=== PATIENT | male | born 1990 | race African-American/Black ===

== ENCOUNTER 2016-12-16 20:23 | Emergency (ER) | payer MEDICAID ==
[~2016-12-16] VITALS: Ht 182.9 cm; Wt 104.3 kg
[2016-12-16 20:30] VITALS: BP 122/70
== END 2016-12-17 03:17 | disposition left against medical advice (07) ==
LOC: ER 20:36
DX: M79.641 Pain in right hand (principal); M79.644 Pain in right finger(s); Z53.21 Procedure and treatment not carried out due to patient leaving prior to being seen by health care provider; Y08.89XA Assault by other specified means, initial encounter; Y93.89 Activity, other specified; Y99.8 Other external cause status; Y92.89 Other specified places as the place of occurrence of the external cause
CPT/HCPCS: 73130

== ENCOUNTER 2016-12-18 03:54 | Emergency (ER) | payer MEDICAID ==
[~2016-12-18] VITALS: Ht 182.9 cm; Wt 96.2 kg
[2016-12-18] MEDS ORDERED: HYDROcodone-ACET 10/325MG TAB PO ONE (04:15)
[2016-12-18 04:18] VITALS: BP 133/78
== END 2016-12-18 04:58 | disposition left against medical advice (07) ==
LOC: ER 03:54
DX: M79.642 Pain in left hand (principal); Z53.21 Procedure and treatment not carried out due to patient leaving prior to being seen by health care provider; Y08.89XA Assault by other specified means, initial encounter; Y93.89 Activity, other specified; Y99.8 Other external cause status; Y92.89 Other specified places as the place of occurrence of the external cause

== ENCOUNTER 2016-12-26 04:10 | Emergency (ER) | payer MEDICAID ==
[~2016-12-26] VITALS: Ht 182.9 cm; Wt 96.6 kg
[2016-12-26 08:30] VITALS: BP 142/70
== END 2016-12-26 10:31 | disposition home or self-care (01) ==
LOC: ER 04:10
DX: S62.92XD Unspecified fracture of left hand, subsequent encounter for fracture with routine healing (principal); X58.XXXD Exposure to other specified factors, subsequent encounter
CPT/HCPCS: 73130

== ENCOUNTER → 2016-12-26 | Emergency (ER) | payer MEDICAID | END | disposition left against medical advice (07) | LOC: ER 00:56 | DX: M79.641 Pain in right hand (principal); Z53.21 Procedure and treatment not carried out due to patient leaving prior to being seen by health care provider ==

== ENCOUNTER 2016-12-31 16:55 | Emergency (ER) | payer MEDICAID ==
[~2016-12-31] VITALS: Ht 182.9 cm; Wt 96.2 kg
[2016-12-31 17:18] VITALS: BP 123/77
== END 2016-12-31 17:44 | disposition home or self-care (01) ==
LOC: ER 16:58
DX: S62.92XD Unspecified fracture of left hand, subsequent encounter for fracture with routine healing (principal); S62.91XD Unspecified fracture of right hand, subsequent encounter for fracture with routine healing; Z76.0 Encounter for issue of repeat prescription; X58.XXXD Exposure to other specified factors, subsequent encounter

== ENCOUNTER 2017-01-18 09:42 | Emergency (ER) | payer MEDICAID ==
[~2017-01-18] VITALS: Ht 185.4 cm; Wt 97.5 kg
[2017-01-18 09:57] VITALS: BP 120/70
== END 2017-01-18 10:58 | disposition home or self-care (01) ==
LOC: ER 09:42
DX: S62.314D Displaced fracture of base of fourth metacarpal bone, right hand, subsequent encounter for fracture with routine healing (principal); X58.XXXD Exposure to other specified factors, subsequent encounter

== ENCOUNTER 2017-02-15 09:05 | Emergency (ER) | payer MEDICAID ==
[~2017-02-15] VITALS: Ht 182.9 cm; Wt 97.5 kg
[2017-02-15 09:31] LABS: Basophils # (auto) 0 uL; CONDITION Y; Eosinophils # (auto) 0.1 uL; Eosinophils % (auto) 2.2 % (0.0-7.0); Hematocrit 44.7 % (41.0-53.0); Hemoglobin 15.3 g/dL (13.5-17.5); Lymphocytes % (auto) 23.8 % (10.0-50.0); Mean Corpuscular Hemoglobin 30.4 pg (28.0-32.0); Mean Corpuscular Hgb Conc. 34.2 g/dL (32.0-36.0); Mean Corpuscular Volume 88.7 fL (80.0-100.0); Mean Platelet Volume 8.1 fL (6.9-10.8); Monocytes # (auto) 0.3 uL; Monocytes % (auto) 6.5 % (0.0-12.0); Neutrophils # (auto) 2.7 uL; Neutrophils % (auto) 66.5 % (37.0-80.0); Platelet Count (auto) 233 10^3/uL (140-450); Red Cell Distribution Width 13.5 % (11.8-14.3)
[2017-02-15 09:45] VITALS: BP 141/75
[2017-02-15 09:52] LABS: Albumin 4.3 g/dL (3.4-5.0); Alkaline Phosphatase 63 U/L (45-117); Anion Gap 8 (5-15); Aspartate Aminotransferase 13 U/L (15-37); BUN/Creatinine Ratio 11.9; Bilirubin, Total 0.9 mg/dL (0.2-1.0); Blood Urea Nitrogen 16 mg/dL (7-18); Calcium 8.9 mg/dL (8.5-10.1); Carbon Dioxide 26 mmol/L (21-32); Chloride 105 mmol/L (98-107); GFR African American 82 mL/min; GFR Non-African American 67 mL/min; Glucose 98 mg/dL (74-106); Potassium 3.7 mmol/L (3.5-5.1); Sodium 139 mmol/L (136-145)
== END 2017-02-15 10:09 | disposition home or self-care (01) ==
LOC: ER 09:05
DX: R07.89 Other chest pain (principal); J45.909 Unspecified asthma, uncomplicated; F17.210 Nicotine dependence, cigarettes, uncomplicated; R42 Dizziness and giddiness; R11.2 Nausea with vomiting, unspecified
CPT/HCPCS: 36415; 71020; 80053; 84484; 85025; 93005

== ENCOUNTER 2022-06-28 13:43 | Emergency (ER) | payer MEDICAID ==
[~2022-06-28] VITALS: Ht 182.9 cm; Wt 100.0 kg
[2022-06-28 14:22] LABS: Basophils # (auto) 0.1 10 ^3/uL (0-0.2); Basophils % (auto) 1.1 % (0.0-2.0); Eosinophils # (auto) 0.2 10 ^3/uL (0-0.8); Eosinophils % (auto) 4.2 % (0.0-7.0); Hematocrit 44.1 % (41.0-53.0); Hemoglobin 14.7 g/dL (13.5-17.5); Lymphocytes # (auto) 1.3 10 ^3/uL (0.4-5.4); Lymphocytes % (auto) 28.5 % (10.0-50.0); Mean Corpuscular Hemoglobin 31.3 pg (28.0-32.0); Mean Corpuscular Hgb Conc. 33.3 g/dL (32.0-36.0); Mean Corpuscular Volume 94.2 fL (80.0-100.0); Monocytes # (auto) 0.4 10 ^3/uL (0-1.3); Monocytes % (auto) 8.4 % (0.0-12.0); Neutrophils # (auto) 2.6 10 ^3/uL (1.6-8.6); Neutrophils % (auto) 57.8 % (37.0-80.0); Nucleated Red Blood Cells % 0.6 %; Red Blood Cells 4.68 10^6/uL (4.5-5.90); Red Cell Distribution Width 13.9 % (11.8-14.3); White Blood Cell 4.5 10^3/uL (4.4-10.8)
[2022-06-28 14:34] LABS: Albumin 4.1 g/dL (3.4-5.0); Calcium 8.5 mg/dL (8.5-10.1); Potassium 4.6 mmol/L (3.5-5.1)
[2022-06-28 14:38] LABS: BUN/Creatinine Ratio 11.7; Bilirubin, Total 0.3 mg/dL (0.2-1.0); Total Protein 7.6 g/dL (6.4-8.2)
[2022-06-28 14:42] LABS: INR 0.99 (0.9-1.15); Partial Thromboplastin Time 28.9 sec (24.6-33.4)
[2022-06-28 16:35] VITALS: BP 132/74
== END 2022-06-28 16:36 | disposition home or self-care (01) ==
LOC: ER 13:43
DX: R07.89 Other chest pain (principal); J45.909 Unspecified asthma, uncomplicated; F17.210 Nicotine dependence, cigarettes, uncomplicated
CPT/HCPCS: 36415; 71045; 80053; 84484; 85025; 85610; 85730; 93005

== ENCOUNTER 2023-04-09 07:32 | Emergency (ER) | payer MEDICAID ==
[~2023-04-09] VITALS: Ht 182.9 cm; Wt 101.5 kg
[2023-04-09 08:27] VITALS: BP 124/80; PULSE 88; RESP 18; TEMP 98.7; O2SAT 100
[2023-04-09] MEDS ORDERED: IBUP1TAB5 PO ×4 (09:30→11:19)
[2023-04-09] MEDS ORDERED: CEPH500C PO ×3 (09:30→09:47)
== END 2023-04-09 09:39 | disposition home or self-care (01) ==
LOC: ER 07:32
DX: H00.11 Chalazion right upper eyelid (principal); F17.210 Nicotine dependence, cigarettes, uncomplicated; F12.10 Cannabis abuse, uncomplicated; Z88.1 Allergy status to other antibiotic agents

== ENCOUNTER 2023-06-05 14:00 | Emergency (ER) | payer MEDICAID ==
[~2023-06-05] VITALS: Ht 182.9 cm; Wt 106.9 kg
[~2023-06-05 14:00] MED LIST: CEPH500C PO; IBUP1TAB5 PO
[2023-06-05 18:42] VITALS: BP 118/74; PULSE 90; RESP 18; TEMP 98.3; O2SAT 98
[2023-06-05] MEDS ORDERED: KETOROLAC TROMETH 30 MG/ML 1ML VIAL IM ONE (19:30)
[2023-06-05] MEDS ORDERED: IBUPROFEN 400 MG TAB PO ONE (19:45)
[2023-06-05] MEDS ORDERED: CLIN300C70 PO (20:04)
== END 2023-06-05 20:11 | disposition home or self-care (01) ==
LOC: ER 14:00
DX: H00.021 Hordeolum internum right upper eyelid (principal); J45.909 Unspecified asthma, uncomplicated; F17.210 Nicotine dependence, cigarettes, uncomplicated; Z79.1 Long term (current) use of non-steroidal anti-inflammatories (NSAID); Z79.899 Other long term (current) drug therapy; Z88.1 Allergy status to other antibiotic agents
CPT/HCPCS: J1885

== ENCOUNTER 2024-05-16 11:33 | Inpatient (IN) | payer MEDICAID ==
[~2024-05-16] VITALS: Ht 182.9 cm; Wt 109.0 kg
[~2024-05-16 11:33] MED LIST changes: +CLIN1CAP70 PO
[2024-05-16] MEDS: SODIUM CHLORIDE 0.9% 1,000 ML IV ONE ×3 (11:45→20:23)
--- NOTE | 2024-05-16 11:50 | ED.PDOC ---
Psychiatric HPI Comments HPI: Poor Historian. History obtained from the [facility] RSO and paramedics. 33-year-old male brought in by [facility] and the paramedics for altered level of consciousness/altered mental status. Patient was acting bizarrely in the street and was not cooperative. He admitted to use of methamphetamine. Per [facility] they are planning on placing him on a 5150 hold for possibly harm to others and to self and for gravely disabled and being confused. Patient states that he has been diagnosed in the past with mental illness including schizophrenia but he is not taking medications. Patient does suggest that he has hearing things and seeing things and make some very abnormal claims about his strength and power. He arrives in handcuffs. He did mentioned that he had some thoughts of hurting himself in the past. She is not cooperative and at this time refusing any intervention. He denies any acute pain. VITALS: RR: 25 02 sat : 98 % on room air HR: 158 BP: 190/145 PMH: schizophrenia, drug use PSH: unknown Social history: denies tobacco use, endorses ETOH use, endorses drug use (METH) Medications: denies Allergies: ciprofloxacin, REVIEW OF SYSTEMS: CONSTITUTIONAL: Denies acute: fever, diaphoresis, chills, generalized weakness. HEAD: Denies acute: headache, photophobia Eyes: Denies acute: Double vision, vision loss, eye pain, eye discharge. EARS: Denies acute: tinnitus, hearing loss, ear discharge, ear pain, THROAT: Denies acute: sore throat, swelling, difficulty swallowing , pain with swallowing, change in voice. NECK: Denies acute: neck pain, neck swelling, stiff neck. HEART: Denies acute : chest pain, palpitations, LUNGS: Denies acute: SOB, wheezing, cough, hemoptysis ABDOMEN: Denies acute: abdominal pain, Nausea, Vomiting, diarrhea, melena , hematemesis, hematochezia SKIN: Denies acute: rash, redness, lesions, itchiness. EXTREMITIES: Denies acute: calf pain, numbness, tingling, weakness, denies pain in extremity. Denies acute: Low back pain. Neuro: Denies acute: focal neurological deficit, motor or sensory focal neurological deficit, tremors, seizure like activity, confusion, dizziness, change in mental status, loss of bowel or bladder function, cauda equina like symptoms. : Denies acute: dysuria, hematuria, flank pain, increase in urinary frequency. PSYCH: Denies acute: PHYSICAL EXAM: General: Mild acute distress, awake and alert. Head: normocephalic, atraumatic. Neck: supple, trachea is midline, no swelling. Throat: Normal phonation. Eyes:, no erythema, no purulent discharge, no proptosis, no icterus. Heart: regular tachycardia, no significant murmur appreciated. Lungs: no apparent respiratory distress, Able to speak in full sentences. No wheezing, no rhonchi, no crackles. No stridors Clear to auscultation bilaterally. Abdomen: non tender to palpation, non distended, soft, no guarding, no rebound, + bowel sounds. Neuro: Awake, Alert, oriented to name, self, situation, follows commands GCS=15. Skin: no petechia, no purpura, no cyanosis, non-pale, not jaundice. Lower extremities: --no - Pitting edema no deformity, no focal swelling, no calf TTP. Makes eye contact. Cervical spine: Palpation of the posterior midline of the cervical spine reveals no focal swelling, erythema, focal tenderness to palpation. Patient has normal range of motion. Face: no apparent facial droop. No nuchal rigidity, Kernig's sign, Brudzinski's sign, no meningeal signs. Chief Complaint: ALOC Time Seen by MD: 11:39 Primary Care Provider: UTO Reviewed Notes: Nurses Notes, Automatic Maintainer Notes, Allergies Information Source: Patient, Emergency Med Personnel Mode of Arrival: EMS Past Medical History PAST MEDICAL HISTORY: Asthma Surgical History: Denies all surgeries Family History Family History: Reviewed,noncontributory to illness, Unknown Social History Smoker: Cigarettes Alcohol: Denies ETOH Use, Occasionally Drugs: Marijuana Lives In: Home Was a procedure done? Was a procedure done?: No X-Ray, Labs, Meds, VS Vital Signs Date Time Temp Pulse Resp B/P (MAP) Pulse Ox O2 Delivery O2 Flow Rate FiO2 05/16/24 20:00 121 05/16/24 20:00 118 26 105/58 (74) 98 05/16/24 19:30 121 25 97 Room Air* 0 21 05/16/24 18:00 136 18 153/86 (108) 98 05/16/24 16:00 145 05/16/24 16:00 139 18 150/98 (115) 98 05/16/24 14:00 137 16 163/134 (144) 97 05/16/24 12:20 26 170/100 (123) 97 05/16/24 12:20 140 26 97 Room Air* 0 21 05/16/24 11:52 152 05/16/24 11:37 158 25 190/145 (160) 98 Lab Test 05/16/24 18:05 05/16/24 15:45 05/16/24 14:40 Range/Units Sodium Level 138 138 136-145 mmol/L Potassium Level 4.5 4.7 3.5-5.1 mmol/L Chloride Level 108 H 102 98-107 mmol/L Carbon Dioxide Level 19 L 25 20-31 mmol/L Anion Gap 11 11 5-15 Blood Urea Nitrogen 12 15 9-23 mg/dL Creatinine 1.20 1.39 H 0.700-1.30 mg/dL Glomerular Filtration Rate Calc 81 68 >90 mL/min BUN/Creatinine Ratio 10.0 10.8 10.0-20.0 Serum Glucose 87 88 74-106 mg/dL Calcium Level 7.9 L 9.4 8.7-10.4 mg/dL Total Bilirubin 0.5 0.6 0.2-1.0 mg/dL Aspartate Amino Transferase (AST) 208 H 216 H 13-40 U/L Alanine Aminotransferase (ALT) 104 H 134 H 7-40 U/L Alkaline Phosphatase 55 74 46-116 U/L Creatine Kinase 7172 H 5676 H 46-171 U/L Troponin I High Sensitivity 12 12 11 </=54 ng/L Total Protein 6.0 7.2 5.7-8.2 g/dL Albumin 3.4 4.3 3.2-4.8 g/dL Plasma/Serum Blood Alcohol < 3.0 <10 mg/dL White Blood Count 6.2 4.4-10.8 10^3/uL Red Blood Count 4.72 4.5-5.90 10^6/uL Hemoglobin 14.6 13.5-17.5 g/dL Hematocrit 43.9 41.0-53.0 % Mean Corpuscular Volume 92.8 80.0-100.0 fL Mean Corpuscular Hemoglobin 30.8 28.0-32.0 pg Mean Corpuscular Hemoglobin Concent 33.2 32.0-36.0 g/dL Red Cell Distribution Width 14.5 H 11.8-14.3 % Platelet Count 189 140-450 10^3/uL Mean Platelet Volume 8.4 6.9-10.8 fL Neutrophils (%) (Auto) 85.7 H 37.0-80.0 % Lymphocytes (%) (Auto) 5.8 L 10.0-50.0 % Monocytes (%) (Auto) 8.3 0.0-12.0 % Eosinophils (%) (Auto) 0.0 0.0-7.0 % Basophils (%) (Auto) 0.2 0.0-2.0 % Neutrophils # (Auto) 5.3 1.6-8.6 10 ^3/uL Lymphocytes # (Auto) 0.4 0.4-5.4 10 ^3/uL Monocytes # (Auto) 0.5 0-1.3 10 ^3/uL Eosinophils # (Auto) 0 0-0.8 10 ^3/uL Basophils # (Auto) 0 0-0.2 10 ^3/uL Nucleated Red Blood Cells 0.1 % Lactic Acid Level 1.2 0.4-2.0 mmol/L Magnesium Level 2.7 H 1.6-2.6 mg/dL B-Type Natriuretic Peptide 6.28 0-100 pg/mL Current Medications Medications (Trade) Dose Ordered Sig/Candy Route Start Time Stop Time Status Last Admin Lorazepam (Ativan Inj) 1 mg ONCE ONCE IV 05/16/24 11:45 05/16/24 11:46 DC 05/16/24 13:46 Sodium Chloride 1,000 ml @ 1,000 mls/hr Q1H ONCE IV 05/16/24 16:15 05/16/24 17:14 DC 05/16/24 16:30 Lorazepam (Ativan Inj) 1 mg ONCE ONCE IM 05/16/24 17:00 05/16/24 17:01 DC 05/16/24 17:10 Sodium Chloride 1,000 ml @ 1,000 mls/hr Q1H ONCE IV 05/16/24 20:00 05/16/24 20:59 DC 05/16/24 20:23 Piperacillin Sod/ Tazobactam Sod 100 ml @ 100 mls/hr ONCE ONCE IV 05/16/24 20:15 05/16/24 21:14 DC 05/16/24 20:58 Lorazepam (Ativan Inj) 1 mg ONCE ONCE IV 05/16/24 22:15 05/16/24 22:16 05/16/24 22:[address] [address] Ph: [phone] DIAGNOSTIC IMAGING Diagnostic Imaging Report : [id number] Signed PATIENT: WINNIE LONG AACCT: [id number] UNIT: [id number] : 1990 LOC: ER ROOM / BED: / AGE / SEX: 33 / M ADM STATUS: REG ER SERVICE 1139 ORDERING PHYSICIAN: ALEX ROUSE DO PROCEDURE(s): HWOCT - HEAD WITHOUT CONTRAST REASON: ALOC, METH USE ORDER NUMBER(s): [id number], ACCESSION NUMBER(s): [id number] CLINICAL INFORMATION: 33 years old, Male; loss of consciousness. TECHNIQUE: Axial imaging was obtained through the brain without contrast. Coronal and sagittal reformatted images were obtained, reviewed, and stored. Images were reviewed in brain and bone windows. All CT scans at this medical facility are performed using dose modulation techniques as appropriate to a performed exam including the following: Automated exposure control was utilized; adjustment of the MA and/or KV according to patient size; and use of iterative reconstruction technique. CTDIvol = 68.79, 0.07, 0.07 mGy DLP = 1219.43 mGy-cm COMPARISON: None FINDINGS: There is no acute intracranial hemorrhage or extraaxial fluid collection. No mass effect or midline shift. There is gas within the cavernous sinuses bilaterally vaginal small locules of suspected venous gas The ventricles and sulci are within normal limits in size for age. Basal cisterns are patent. The calvarium is unremarkable. Mild mucosal thickening of the paranasal sinuses. Mastoid air cells are clear. IMPRESSION: 1. No CT evidence of acute intracranial abnormality. 2. Gas locules are seen in the cavernous sinuses additional small locules of suspected venous gas, most likely secondary to gas emboli from intravenous catheter, although correlation with clinical findings is needed. ATED BY: SLAVA TUCKER DO DICTATED DATE/TIME: 05/16/241851 SIGNED BY: SLAVA TUCKER DO SIGNED DATE/TIME: 05/16/241851 CC: [place] [address] Ph: [phone] DIAGNOSTIC IMAGING Diagnostic Imaging Report : [id number] Signed PATIENT: WINNIE LONG AACCT: [id number] UNIT: [id number] : 1990 LOC: ER ROOM / BED: / AGE / SEX: 33 / M ADM STATUS: REG ER SERVICE 1139 ORDERING PHYSICIAN: ALEX ROUSE DO PROCEDURE(s): CXRP - CHEST PORTABLE REASON: ALOC, METH USE ORDER NUMBER(s): [id number], ACCESSION NUMBER(s): [id number] CHEST RADIOGRAPH Indication: ALOC, METH USE Technique: Single frontal view of the chest was obtained Comparison: CHEST PORTABLE on DOS: 06/28/22, CXRP on DOS: 06/28/22 FINDINGS: Lines and Tubes: None Lungs: No focal consolidation. Pleura: No effusion. No pneumothorax. Cardiomediastinal contours: Unremarkable Bones: No acute osseous abnormality. IMPRESSION: No acute cardiopulmonary disease. ATED BY: JENNIFFER HOLDER DO DICTATED DATE/TIME: 05/16/241629 SIGNED BY: JENNIFFER HODLER DO SIGNED DATE/TIME: 05/16/241629 CC: Time of 1ST Reevaluation: 20:58 (Patient's heart rate improved blood pressure is stable. The case was discussed with the [facility] ER physician and neurosurgeon on the phone (HPI, physical exam, labs and diagnostic tests that were available at the time of disposition, ED course, treatment plan) on the phone. They agreed to admit the patient to their service and assume care of this patient from this point forward. Finding a CT scan of air in cavernous sinus was discussed with the neurosurgeon at [facility] and the ER physician at the facility. I attempted to reach out for higher level of care and transfer. The neurosurgeon Dr. Johntson on the phone said that there is no need for neurosurgical intervention or consultation since there is no fr acture and no bleed that the CT scan finding is from the IV access.) Time of 2ND Reevaluation: 22:06 (The [facility] facility that has a usp unit. I Discussed the case again with [facility] transfer center. They have no usp beds got beds available. They said they can not take the patient at this time. Patient is not medically cleared yet. Patient is still agitated and tachycardic and in rhabdomyolysis. He has not provided us with a urine yet. His bladder scan showed 200 cc. We will continue to hydrate him.) Patient Education/Counseling: Diagnosis, Treatment Family Education/Counseling: No Family Present Comments MDM: Patient presented with the above HPI.-----altered mental status---- -workup was initiated. patient was found with the above mentioned diagnosis. the following medications were ordered: 3x Ativan, Zosyn, 3x IV fluids, the following tests were ordered: troponin x 3, chest-ray, mag level, lactic acid, UA, CMP, CBC, electronic device monitor, CT head without contrast, EKGx1, CK, drug screen, Patient ED course and VS have been stabilized. Patient has been reassessed in the ED and remained in a stable condition. Patient has been observed in the ED adequate length of time to insure improvement/stability. Escalation of care considered: Consideration of escalation to observation or admission. patient was admitted to the medicine team for further evaluation and treatment of their presentation. Patient's CK levels continues to rise despite fluid hydration. Patient will be admitted for rhabdomyolysis and medical management. All the reports of any imaging studies that were ordered by myself were reviewed by myself. Departure 1 Departure Time of Disposition: 19:44 Impression: Primary Impression: Rhabdomyolysis Additional Impressions: Methamphetamine abuse Tachycardia Need for psychiatric clinical nurse specialist consultation Dehydration Disposition: ADMITTED INPATIENT Admit to: Tele Condition: Guarded Discharged With: Self Critical Care Note Critical Care Time?: Yes (1 hr-critical care time only) I personally scribed for ALEX ROUSE DO ([facility]) on 05/16/24 at 11:50. Electronically submitted by Axel Herrera ([email or web address]). I personally scribed for ALEX ROUSE DO ([facility]) on 05/16/24 at 15:09. Electronically submitted by Axel Herrera ([facility]). I personally scribed for ALEX ROUSE DO ([facility]) on 05/16/24 at 22:21. Electronically submitted by Axel Herrera ([facility]). ALEX ROUSE DO May 16, 2024 11:50
[2024-05-16 12:20] VITALS: PULSE 140; RESP 26; O2SAT 97
[2024-05-16] MEDS: LORazepam 2MG/ML-1ML VIAL IV ONE ×2 (13:46→22:12)
[2024-05-16 15:17] LABS: Basophils # (auto) 0 10 ^3/uL (0-0.2); Basophils % (auto) 0.2 % (0.0-2.0); Eosinophils # (auto) 0 10 ^3/uL (0-0.8); Hematocrit 43.9 % (41.0-53.0); Hemoglobin 14.6 g/dL (13.5-17.5); Lymphocytes # (auto) 0.4 10 ^3/uL (0.4-5.4); Lymphocytes % (auto) 5.8 % (10.0-50.0); Mean Corpuscular Hemoglobin 30.8 pg (28.0-32.0); Mean Corpuscular Hgb Conc. 33.2 g/dL (32.0-36.0); Mean Corpuscular Volume 92.8 fL (80.0-100.0); Monocytes # (auto) 0.5 10 ^3/uL (0-1.3); Monocytes % (auto) 8.3 % (0.0-12.0); Neutrophils # (auto) 5.3 10 ^3/uL (1.6-8.6); Neutrophils % (auto) 85.7 % (37.0-80.0); Nucleated Red Blood Cells % 0.1 %; Platelet Count (auto) 189 10^3/uL (140-450); Red Blood Cells 4.72 10^6/uL (4.5-5.90); Red Cell Distribution Width 14.5 % (11.8-14.3); White Blood Cell 6.2 10^3/uL (4.4-10.8)
[2024-05-16 15:32] LABS: Albumin 4.3 g/dL (3.2-4.8); Alkaline Phosphatase 74 U/L (46-116); Anion Gap 11 (5-15); BUN/Creatinine Ratio 10.8 (10.0-20.0); Bilirubin, Total 0.6 mg/dL (0.2-1.0); Blood Urea Nitrogen 15 mg/dL (9-23); Calcium 9.4 mg/dL (8.7-10.4); Carbon Dioxide 25 mmol/L (20-31); Chloride 102 mmol/L (98-107); Glucose 88 mg/dL (74-106); Potassium 4.7 mmol/L (3.5-5.1); Sodium 138 mmol/L (136-145); Total Protein 7.2 g/dL (5.7-8.2)
[2024-05-16 15:38] LABS: Alanine Aminotransferase 134 U/L (7-40); Aspartate Aminotransferase 216 U/L (13-40); Magnesium 2.7 mg/dL (1.6-2.6)
[2024-05-16 15:46] LABS: Creatine Kinase IFCC 5676 U/L (46-171)
[2024-05-16] MEDS ORDERED: SODIUM CHLORIDE 0.9% 1,000 ML IV ONE (16:15)
--- NOTE | 2024-05-16 16:33 | DVH ---
CHEST RADIOGRAPH Indication: ALOC, METH USE Technique: Single frontal view of the chest was obtained Comparison: CHEST PORTABLE on DOS: 06/28/22, CXRP on DOS: 06/28/22 FINDINGS: Lines and Tubes: None Lungs: No focal consolidation. Pleura: No effusion. No pneumothorax. Cardiomediastinal contours: Unremarkable Bones: No acute osseous abnormality. IMPRESSION: No acute cardiopulmonary disease.
[2024-05-16] MEDS: LORazepam 2MG/ML-1ML VIAL IM ONE (17:10)
--- NOTE | 2024-05-16 18:54 | DVH ---
CLINICAL INFORMATION: 33 years old, Male; loss of consciousness. TECHNIQUE: Axial imaging was obtained through the brain without contrast. Coronal and sagittal refor matted images were obtained, reviewed, and stored. Images were reviewed in brain and bone windows. A ll CT scans at this medical facility are performed using dose modulation techniques as appropriate to a performed exam including the following: Automated exposure control was utilized; adjustment of the MA and/or KV according to patient size; and use of iterative reconstruction technique. CTDIvol = 68.79, 0.07, 0.07 mGy DLP = 1219.43 mGy-cm COMPARISON: None FINDINGS: There is no acute intracranial hemorrhage or extraaxial fluid collection. No mass effect o r midline shift. There is gas within the cavernous sinuses bilaterally vaginal small locules of suspe cted venous gas The ventricles and sulci are within normal limits in size for age. Basal cisterns are patent. The calvarium is unremarkable. Mild mucosal thickening of the paranasal sinuses. Mastoi d air cells are clear. IMPRESSION: 1. No CT evidence of acute intracranial abnormality. 2. Gas locules are seen in the cavernous sinuses additional small locules of suspected venous gas, mo st likely secondary to gas emboli from intravenous catheter, although correlation with clinical findi ngs is needed.
[2024-05-16 18:57] LABS: Alkaline Phosphatase 55 U/L (46-116); Anion Gap 11 (5-15); Blood Urea Nitrogen 12 mg/dL (9-23); Glucose 87 mg/dL (74-106); Potassium 4.5 mmol/L (3.5-5.1); Sodium 138 mmol/L (136-145)
[2024-05-16 18:58] LABS: Albumin 3.4 g/dL (3.2-4.8); Bilirubin, Total 0.5 mg/dL (0.2-1.0)
--- NOTE | 2024-05-16 19:00 | ECG ---
[facility] Test Date: 2024-05-16 Test Time: 11:51:19 Pat Name: WINNIE LONG Department: ED Room: Gender: M Grinder Setup Operator: VANESSA : 1990 Requested By: ALEX ROUSE Order Number: [id number] Reading MD: Measurements Intervals [place] Rate: 143 P: 105 NC: 109 QRS: 62 QRSD: 92 T: -15 QT: 307 QTc: 474 Interpretive Statements Sinus tachycardia Borderline repolarization abnormality Borderline ST elevation, anterior leads Borderline prolonged QT interval Baseline wander in lead(s) I,II,III,aVR,aVL,aVF,V1,V2,V3,V4,V5,V6 Please click the below link to view image of tracing.
[2024-05-16 19:14] LABS: Alanine Aminotransferase 104 U/L (7-40); Aspartate Aminotransferase 208 U/L (13-40); Calcium 7.9 mg/dL (8.7-10.4); Carbon Dioxide 19 mmol/L (20-31); Chloride 108 mmol/L (98-107)
[2024-05-16 19:30] VITALS: PULSE 121; RESP 25; O2SAT 97
[2024-05-16] MEDS: PIPERACILLIN-TAZOB 3.375GM 100 ML IV ONE (20:58)
[2024-05-16 23:19] LABS: Urine Bacteria MANY /hpf (None Seen); Urine Blood Negative /uL (Negative); Urine Clarity Clear (Clear); Urine Color Light-Yellow (Yellow); Urine Mucus FEW (None Seen); Urine Protein, UAD 1+ (Negative); Urine Specific Gravity 1.023 (1.001-1.035); Urine Sperm PRESENT /hpf (None Seen); Urine Urobilinogen Normal (Negative); Urine WBC 3 /hpf (0 - 3); Urine pH 6.5 (5.0-9.0)
[2024-05-16 23:42] LABS: Amphetamine Screen, Urine Pos (NEGATIVE); Barbiturate Scree,Urine Neg (NEGATIVE); Benzodiazephine Screen, Urine Neg (NEGATIVE); Cannabinoid Screen, Urine Pos (NEGATIVE); Cocaine Screen, Urine Pos (NEGATIVE); Opiate Scree,Urine Neg (NEGATIVE); Phencyclidine Screen, Urine Neg (NEGATIVE)
--- NOTE | 2024-05-16 23:44 | DVHHP2 ---
History of Present Illness Reason for Visit: Rhabdomyolysis History of Present Illness The patient is a 33-year-old male with past medical history of drug use, schizophrenia, and asthma presented to [facility] ED for evaluation of altered level of consciousness. As reported by ' SRIDHAR patient was acting bizarre in the street, uncooperative, admitted to methamphetamine use. Per they are planning on placing him on a 5150 hold for possibly harm to others and to self, for gravely disabled and being confused. Patient states that he has been diagnosed in the past with mental illness including schizophrenia but he is not taking medications. Patient does suggest that he has hearing things and seeing things and make some very abnormal claims about his strength and power. He arrives in handcuffs by . Patient was seen and evaluated in the ED, laboratory data shows WBC 6.2 platelets 189, sodium 138, potassium 4.7, BUN 15, creatinine 1.39, glucose 88, BNP 6.28, calcium 9.4, AST 216, ALT 134, CK 5676, troponin 12, blood pressure 190/145 trending down to 105/58, heart rate 158 trending down to 118, temperature 98.7 F, O2 saturation 99% room air. Head CT showed no evidence of acute intracranial abnormality. Patient was given IV fluid normal saline, please see medication orders section in the computer. On my assessment, patient remains confused, no diaphoresis, no palpitation, no shortness a breath, no diarrhea, no nausea, no vomiting, no fever, no chills. Patient was admitted for further evaluation and medical management. Past Medical History Asthma, schizophrenia, drug use Past Surgical History Denies all surgeries Family History Reviewed, noncontributory to the management of this case. Past Social History Patient lives at home, smokes cigarettes drinks alcohol occasionally, uses marijuana and methamphetamine. Review of Systems Constitutional: Yes: Weakness; No: Fever, Chills, Sweats, Malaise, Other Eyes: No: Pain, Vision change, Conjunctivae inflammation, Eyelid inflammation, Other, Redness ENT: No: Ear pain, Ear discharge, Nose pain, Nose discharge, Nose congestion, Mouth pain, Mouth swelling, Throat pain, Throat swelling, Other Respiratory: No: Cough, Dry, Shortness of breath, SOB with excertion, Wheezing, Hemoptysis, Pleuritic Pain, Sputum, Wheezing, Other Cardiovascular: No: Chest Pain, Palpitations, Orthopnea, Paroxysmal Noc. Dyspnea, Edema, Lt Headedness, Other Gastrointestinal: No: Nausea, Vomiting, Abdominal Pain, Diarrhea, Constipation, Melena, Hematochezia, Other Genitourinary: No Dysuria, No Frequency, No Incontinence, No Hematuria, No Retention, No Other Musculoskeletal: No: other, neck pain, shoulder pain, arm pain, back pain, hand pain, leg pain, foot pain Skin: No: Rash, Lesions, Jaundice, Bruising, Other Neurological: Confusion; No: Weakness, Numbness, Incoordination, Change in speech, Seizures, Other Allergies: Coded Allergies: Ciprofloxacin (Verified Allergy, Unknown, 09/13/22) Exam Vital Signs Vital Signs Date Time Temp Pulse Resp B/P (MAP) Pulse Ox O2 Delivery O2 Flow Rate FiO2 05/16/24 20:00 121 05/16/24 20:00 98.7 26 105/58 (74) 98 98.7 05/16/24 19:30 Room Air* 0 21 General Appearance: Alert, Cooperative, No acute distress, Other (Oriented x2) HEENT: Atraumatic, PERRLA, EOMI, Mucous membr. moist/pink Respiratory: Clear to auscultation, Normal air movement Cardiovascular: Regular rate, Normal S1, Normal S2, No murmurs Abdominal: Normal bowel sounds, Soft, No tenderness, No hepatospenomegaly, No masses Extremities: No clubbing, No cyanosis, No edema, Normal pulses, No tenderness/swelling Skin: No rashes, No breakdown, No significant lesion Neuro: Normal speech, Normal tone, Sensation intact, Cranial nerves 3-12 NL, Reflexes 2+, Other (Generalized weakness) Psych/Mental Status: Mood NL, Other (Altered mental status) Labs/Xrays Labs Test 05/16/24 21:54 05/16/24 18:05 05/16/24 14:40 Range/Units Urine Color Light-yellow Yellow Urine Clarity Clear Clear Urine pH 6.5 5.0-9.0 Urine Specific [place] 1.023 1.001-1.035 Urine Protein 1+ H Negative Urine Ketones 2+ H Negative Urine Blood Negative Negative /uL Urine Nitrite Negative Negative Urine Bilirubin Negative Negative Urine Urobilinogen Normal Negative mg/dL Urine Leukocyte Esterase Negative Negative /uL Urine RBC 2 0 - 3 /hpf Urine WBC 3 0 - 3 /hpf Urine Squamous Epithelial Cells None seen <5 /hpf Urine Bacteria Many H None Seen /hpf Urine Mucus Few None Seen Urine Sperm Present None Seen /hpf Urine Glucose Normal Normal mg/dL Sodium Level 138 136-145 mmol/L Potassium Level 4.5 3.5-5.1 mmol/L Chloride Level 108 H 98-107 mmol/L Carbon Dioxide Level 19 L 20-31 mmol/L Anion Gap 11 5-15 Blood Urea Nitrogen 12 9-23 mg/dL Creatinine 1.20 0.700-1.30 mg/dL Glomerular Filtration Rate Calc 81 >90 mL/min BUN/Creatinine Ratio 10.0 10.0-20.0 Serum Glucose 87 74-106 mg/dL Calcium Level 7.9 L 8.7-10.4 mg/dL Total Bilirubin 0.5 0.2-1.0 mg/dL Aspartate Amino Transferase (AST) 208 H 13-40 U/L Alanine Aminotransferase (ALT) 104 H 7-40 U/L Alkaline Phosphatase 55 46-116 U/L Creatine Kinase 7172 H 46-171 U/L Troponin I High Sensitivity 12 </=54 ng/L Total Protein 6.0 5.7-8.2 g/dL Albumin 3.4 3.2-4.8 g/dL Plasma/Serum Blood Alcohol < 3.0 <10 mg/dL White Blood Count 6.2 4.4-10.8 10^3/uL Red Blood Count 4.72 4.5-5.90 10^6/uL Hemoglobin 14.6 13.5-17.5 g/dL Hematocrit 43.9 41.0-53.0 % Mean Corpuscular Volume 92.8 80.0-100.0 fL Mean Corpuscular Hemoglobin 30.8 28.0-32.0 pg Mean Corpuscular Hemoglobin Concent 33.2 32.0-36.0 g/dL Red Cell Distribution Width 14.5 H 11.8-14.3 % Platelet Count 189 140-450 10^3/uL Mean Platelet Volume 8.4 6.9-10.8 fL Neutrophils (%) (Auto) 85.7 H 37.0-80.0 % Lymphocytes (%) (Auto) 5.8 L 10.0-50.0 % Monocytes (%) (Auto) 8.3 0.0-12.0 % Eosinophils (%) (Auto) 0.0 0.0-7.0 % Basophils (%) (Auto) 0.2 0.0-2.0 % Neutrophils # (Auto) 5.3 1.6-8.6 10 ^3/uL Lymphocytes # (Auto) 0.4 0.4-5.4 10 ^3/uL Monocytes # (Auto) 0.5 0-1.3 10 ^3/uL Eosinophils # (Auto) 0 0-0.8 10 ^3/uL Basophils # (Auto) 0 0-0.2 10 ^3/uL Nucleated Red Blood Cells 0.1 % Lactic Acid Level 1.2 0.4-2.0 mmol/L Magnesium Level 2.7 H 1.6-2.6 mg/dL B-Type Natriuretic Peptide 6.28 0-100 pg/mL PATIENT: WINNIE LONG AACCT: [id number] UNIT: [id number] : 1990 LOC: ER ROOM / BED: / AGE / SEX: 33 / M ADM STATUS: REG ER SERVICE 1139 ORDERING PHYSICIAN: ALEX ROUSE DO PROCEDURE(s): HWOCT - HEAD WITHOUT CONTRAST REASON: ALOC, METH USE ORDER NUMBER(s): [id number], ACCESSION NUMBER(s): [id number] CLINICAL INFORMATION: 33 years old, Male; loss of consciousness. TECHNIQUE: Axial imaging was obtained through the brain without contrast. Coronal and sagittal reformatted images were obtained, reviewed, and stored. Images were reviewed in brain and bone windows. All CT scans at this medical facility are performed using dose modulation techniques as appropriate to a performed exam including the following: Automated exposure control was utilized; adjustment of the MA and/or KV according to patient size; and use of iterative reconstruction technique. CTDIvol = 68.79, 0.07, 0.07 mGy DLP = 1219.43 mGy-cm COMPARISON: None FINDINGS: There is no acute intracranial hemorrhage or extraaxial fluid collection. No mass effect or midline shift. There is gas within the cavernous sinuses bilaterally vaginal small locules of suspected venous gas The ventricles and sulci are within normal limits in size for age. Basal cisterns are patent. The calvarium is unremarkable. Mild mucosal thickening of the paranasal sinuses. Mastoid air cells are clear. IMPRESSION: 1. No CT evidence of acute intracranial abnormality. 2. Gas locules are seen in the cavernous sinuses additional small locules of suspected venous gas, most likely secondary to gas emboli from intravenous catheter, although correlation with clinical findings is needed. ORDERING PHYSICIAN: ALEX ROUSE DO PROCEDURE(s): CXRP - CHEST PORTABLE REASON: ALOC, METH USE ORDER NUMBER(s): [id number], ACCESSION NUMBER(s): [id number] CHEST RADIOGRAPH Indication: ALOC, METH USE Technique: Single frontal view of the chest was obtained Comparison: CHEST PORTABLE on DOS: 06/28/22, CXRP on DOS: 06/28/22 FINDINGS: Lines and Tubes: None Lungs: No focal consolidation. Pleura: No effusion. No pneumothorax. Cardiomediastinal contours: Unremarkable Bones: No acute osseous abnormality. IMPRESSION: No acute cardiopulmonary disease. Assessment/Plan Assessment/Plan Rhabdomyolysis Dehydration Methamphetamine abuse Tachycardia Elevated liver enzymes Need for psychiatric clinical nurse specialist consultation Plan 1. Admit to telemetry unit 2. Breathing treatment 3. Pain control management 4. IV antibiotic management 5. Management of fluids and electrolytes 6. Consultation for GI/psychiatric 7. Diagnostic test head CT 8. DVT prophylaxis-on SCDs 9. Repeat labs CBC, CMP in a.m. 10. Continue with current medical management 11. Treatment plan discussed with patient and RN. Patient verbalized u nderstanding. Plan discussed with: Patient, Other (RN) Problem List: (1) Rhabdomyolysis (2) Elevated liver enzymes (3) Dehydration (4) Methamphetamine abuse (5) Tachycardia (6) Need for psychiatric clinical nurse specialist consultation Date of Service: May 16, 2024 Billing Provider: MERON BABCOCK DNP Common Visit Codes: [id number] INP/OBS CARE (HIGH) MERON BABCOCK DNP May 16, 2024 23:44
[2024-05-16] MEDS ORDERED: hydrALAZINE HCL 20 MG/ML VL IV PRN (23:45)
[2024-05-16] MEDS ORDERED: NITROGLYCERIN 0.4 MG SL TAB SL PRN (23:45)
[2024-05-16] MEDS ORDERED: DOCUSATE SOD 100 MG CAP PO PRN (23:45)
[2024-05-16] MEDS ORDERED: HYDROcodone-ACET 5/325MG TAB PO PRN (23:45)
[2024-05-16] MEDS ORDERED: IBUPROFEN 600 MG TAB PO PRN (23:45)
[2024-05-17] MEDS: SODIUM CHLORIDE 0.9% 1,000 ML IV SCH (00:23)
[2024-05-17] MEDS: diphenhdrAMINE HCL 50 MG/1 ML VL IV ONE (00:49)
[2024-05-17 05:02] LABS: Basophils # (auto) 0 10 ^3/uL (0-0.2); Basophils % (auto) 0.5 % (0.0-2.0); Eosinophils # (auto) 0 10 ^3/uL (0-0.8); Eosinophils % (auto) 0.1 % (0.0-7.0); Hematocrit 38.4 % (41.0-53.0); Hemoglobin 12.9 g/dL (13.5-17.5); Lymphocytes # (auto) 0.9 10 ^3/uL (0.4-5.4); Mean Corpuscular Hemoglobin 31.2 pg (28.0-32.0); Mean Corpuscular Hgb Conc. 33.6 g/dL (32.0-36.0); Mean Corpuscular Volume 92.9 fL (80.0-100.0); Monocytes # (auto) 0.5 10 ^3/uL (0-1.3); Monocytes % (auto) 12.8 % (0.0-12.0); Neutrophils # (auto) 2.6 10 ^3/uL (1.6-8.6); Neutrophils % (auto) 63.6 % (37.0-80.0); Platelet Count (auto) 173 10^3/uL (140-450); Red Blood Cells 4.14 10^6/uL (4.5-5.90); Red Cell Distribution Width 14.6 % (11.8-14.3)
[2024-05-17 05:12] LABS: Albumin 3.6 g/dL (3.2-4.8); Alkaline Phosphatase 61 U/L (46-116); Anion Gap 12 (5-15); BUN/Creatinine Ratio 8.5 (10.0-20.0); Bilirubin, Total 0.9 mg/dL (0.2-1.0); Blood Urea Nitrogen 10 mg/dL (9-23); Carbon Dioxide 21 mmol/L (20-31); Glucose 87 mg/dL (74-106); Potassium 3.9 mmol/L (3.5-5.1); Sodium 140 mmol/L (136-145); Total Protein 6.4 g/dL (5.7-8.2)
[2024-05-17 05:14] LABS: Alanine Aminotransferase 111 U/L (7-40); Aspartate Aminotransferase 221 U/L (13-40); Calcium 8.5 mg/dL (8.7-10.4); Chloride 107 mmol/L (98-107)
[2024-05-17] MEDS: MORPHINE SULFATE INJ 2 MG/ml SYRG IV PRN ×2 (05:28)
[2024-05-17] MEDS: ONDANSETRON HCL 4 MG/2 ML VIAL IV PRN (05:28)
[2024-05-17] MEDS: diphenhdrAMINE HCL 50 MG/1 ML VL IV PRN (06:31)
[2024-05-17 08:26] VITALS: RESP 25
[2024-05-17] MEDS: LORazepam 2MG/ML-1ML VIAL IV PRN (08:42)
--- NOTE | 2024-05-17 13:47 | DVHPN2 ---
Assessment/Plan Assessment/Plan Progress note Subjective 33 yo M with prior psych disorders admitted for rhabdomyolysis. On my assessment patient was talkative, redirectable, disorganized thought, possible halucinations. Objective Physical exam alert, oriented, disorganized tangential thoughts, unable to eval further clear breath sounds s1 s2 tachycardia abdomen soft nontender no LE edema Lab Wb 4 Hb 12 CK 7k Cr 1.4 AST/ALT 221/111 trop neg UDS cocaine, amphetamines, cannabinoids EKG afib LBBB Imaging CTH clear CXR clear Assessment and plan elevated CK likely myolysis CHETNA improving No myoglobin in urine amphetamine use cannabis use cocaine use transaminitis psychosis? asthma not in exacerbation IV fluid bolus psych consult PRN haldol for agitation colateral if possible Replete electrolytes Diet regular DVT prophylaxis ambulatory Plan discussed with: Other My Orders Orders - VELVET BIRD MD Procedure Category Date Status Time Soc Telemed Psych CONS 05/17/24 Transmitted Consult 10:35 Date of Service: May 17, 2024 Billing Provider: VELVET BIRD MD Common Visit Codes: [id number] INP/OBS CARE(HIGH) VELVET BIRD MD May 17, 2024 13:47
[2024-05-17] MEDS: SODIUM CHLORIDE 0.9% 1,000 ML IV ONE (18:30)
[2024-05-17 19:30] VITALS: PULSE 112; RESP 12
[2024-05-18 06:13] LABS: Basophils # (auto) 0 10 ^3/uL (0-0.2); Basophils % (auto) 0.5 % (0.0-2.0); Eosinophils # (auto) 0 10 ^3/uL (0-0.8); Eosinophils % (auto) 0.2 % (0.0-7.0); Hematocrit 40.6 % (41.0-53.0); Hemoglobin 13.8 g/dL (13.5-17.5); Lymphocytes # (auto) 0.9 10 ^3/uL (0.4-5.4); Lymphocytes % (auto) 21.2 % (10.0-50.0); Mean Corpuscular Hemoglobin 31.3 pg (28.0-32.0); Mean Corpuscular Hgb Conc. 34.1 g/dL (32.0-36.0); Mean Corpuscular Volume 91.8 fL (80.0-100.0); Monocytes # (auto) 0.4 10 ^3/uL (0-1.3); Monocytes % (auto) 8.9 % (0.0-12.0); Neutrophils # (auto) 2.9 10 ^3/uL (1.6-8.6); Neutrophils % (auto) 69.2 % (37.0-80.0); Nucleated Red Blood Cells % 0.2 %; Platelet Count (auto) 160 10^3/uL (140-450); Red Blood Cells 4.42 10^6/uL (4.5-5.90); Red Cell Distribution Width 14.6 % (11.8-14.3); White Blood Cell 4.2 10^3/uL (4.4-10.8)
[2024-05-18 06:15] LABS: Chloride 104 mmol/L (98-107); Potassium 3.9 mmol/L (3.5-5.1); Sodium 136 mmol/L (136-145)
[2024-05-18 06:16] LABS: Anion Gap 10 (5-15); Calcium 8.9 mg/dL (8.7-10.4); Carbon Dioxide 22 mmol/L (20-31)
[2024-05-18 06:21] LABS: Blood Urea Nitrogen 12 mg/dL (9-23); Glucose 95 mg/dL (74-106)
[2024-05-18 06:34] LABS: Creatine Kinase IFCC 6427 U/L (46-171)
[2024-05-18] MEDS: OLANZapine 5 MG TAB PO SCH (09:44)
[2024-05-18] MEDS ORDERED: HALOPERIDOL LACTATE 5 MG/ML INJ VIAL IV PRN (14:45)
[2024-05-18] MEDS: SODIUM CHLORIDE 0.9% 1,000 ML IV ONE (15:23)
--- NOTE | 2024-05-18 20:48 | DVHPN2 ---
Assessment/Plan Assessment/Plan Progress note Subjective 33 yo M with prior psych disorders admitted for rhabdomyolysis. On my assessment patient was talkative, redirectable, disorganized thought, possible halucinations. Patient seen by me today during rounds Medicated as patient was agitated prior. tele psych consult pending.Still tachycardic, kidney function improved. no need to trend CK. Objective Physical exam asleep s/p medication clear breath sounds s1 s2 tachycardia abdomen soft nontender no LE edema Lab Wb 4 Hb 12 CK 7k Cr 1.4 AST/ALT 221/111 trop neg UDS cocaine, amphetamines, cannabinoids EKG afib LBBB Imaging CTH clear CXR clear Assessment and plan elevated CK likely myolysis CHETNA improving rhabdomyolisis, however on our eval no myoglobin in urine, with CHETNA and elevated CK amphetamine use afib rvr now rate controlled cannabis use cocaine use transaminitis psychosis? asthma not in exacerbation IV fluid bolus psych consult PRN haldol for agitation lopressor PRN RVR Replete electrolytes Diet regular DVT prophylaxis hold Plan discussed with: Patient My Orders Orders - VELVET BIRD MD Procedure Category Date Status Time Olanzapine Tablet PHA 05/18/24 In Process (Zyprexa Tablet) 10:00 Haloperidol Lactate PHA 05/18/24 In Process Injection (Haldol) 14:45 Date of Service: May 18, 2024 Billing Provider: VELVET BIRD MD Common Visit Codes: [id number] INP/OBS CARE(HIGH) VELVET BIRD MD May 18, 2024 20:48
[2024-05-18] MEDS ORDERED: METOPROLOL TARTRATE 1MG/1ML-5ML VIAL IV PRN (21:00)
--- NOTE | 2024-05-18 21:11 | DVHINCON2 ---
Date of Service if different f: May 18, 2024 Time of Service: 20:52 Consultation ([facility]) Consulting Physician: CHHAYA GALARZA MD Labs Laboratory Tests Test 05/16/24 14:40 05/16/24 18:05 05/16/24 21:54 05/17/24 04:30 Lactic Acid Level 1.2 mmol/L (0.4-2.0) Magnesium Level 2.7 mg/dL (1.6-2.6) B-Type Natriuretic Peptide 6.28 pg/mL (0-100) Troponin I High Sensitivity 12 ng/L (</=54) Plasma/Serum Blood Alcohol < 3.0 mg/dL (<10) Urine Color Light-yellow (Yellow) Urine Clarity Clear (Clear) Urine pH 6.5 (5.0-9.0) Urine Specific [place] 1.023 (1.001-1.035) Urine Protein 1+ (Negative) Urine Ketones 2+ (Negative) Urine Blood Negative /uL (Negative) Urine Nitrite Negative (Negative) Urine Bilirubin Negative (Negative) Urine Urobilinogen Normal mg/dL (Negative) Urine Leukocyte Esterase Negative /uL (Negative) Urine RBC 2 /hpf (0 - 3) Urine WBC 3 /hpf (0 - 3) Urine Squamous Epithelial Cells None seen /hpf (<5) Urine Bacteria Many /hpf (None Seen) Urine Mucus Few (None Seen) Urine Sperm Present /hpf (None Seen) Urine Glucose Normal mg/dL (Normal) Urine Opiates Screen Neg (NEGATIVE) Urine Fentanyl Screen Neg (NEGATIVE) Urine Barbiturates Screen Neg (NEGATIVE) Urine Phencyclidine Screen Neg (NEGATIVE) Urine Amphetamines Screen Pos (NEGATIVE) Urine Benzodiazepines Screen Neg (NEGATIVE) Urine Cocaine Screen Pos (NEGATIVE) Urine Cannabinoids Screen Pos (NEGATIVE) Total Bilirubin 0.9 mg/dL (0.2-1.0) Aspartate Amino Transf (AST/SGOT) 221 U/L (13-40) Alanine Aminotransferase (ALT/SGPT) 111 U/L (7-40) Alkaline Phosphatase 61 U/L (46-116) Total Protein 6.4 g/dL (5.7-8.2) Albumin 3.6 g/dL (3.2-4.8) Test 05/18/24 05:54 White Blood Count 4.2 10^3/uL (4.4-10.8) Red Blood Count 4.42 10^6/uL (4.5-5.90) Hemoglobin 13.8 g/dL (13.5-17.5) Hematocrit 40.6 % (41.0-53.0) Mean Corpuscular Volume 91.8 fL (80.0-100.0) Mean Corpuscular Hemoglobin 31.3 pg (28.0-32.0) Mean Corpuscular Hemoglobin Concent 34.1 g/dL (32.0-36.0) Red Cell Distribution Width 14.6 % (11.8-14.3) Platelet Count 160 10^3/uL (140-450) Mean Platelet Volume 8.2 fL (6.9-10.8) Neutrophils (%) (Auto) 69.2 % (37.0-80.0) Lymphocytes (%) (Auto) 21.2 % (10.0-50.0) Monocytes (%) (Auto) 8.9 % (0.0-12.0) Eosinophils (%) (Auto) 0.2 % (0.0-7.0) Basophils (%) (Auto) 0.5 % (0.0-2.0) Neutrophils # (Auto) 2.9 10 ^3/uL (1.6-8.6) Lymphocytes # (Auto) 0.9 10 ^3/uL (0.4-5.4) Monocytes # (Auto) 0.4 10 ^3/uL (0-1.3) Eosinophils # (Auto) 0 10 ^3/uL (0-0.8) Basophils # (Auto) 0 10 ^3/uL (0-0.2) Nucleated Red Blood Cells 0.2 % Sodium Level 136 mmol/L (136-145) Potassium Level 3.9 mmol/L (3.5-5.1) Chloride Level 104 mmol/L (98-107) Carbon Dioxide Level 22 mmol/L (20-31) Anion Gap 10 (5-15) Blood Urea Nitrogen 12 mg/dL (9-23) Creatinine 1.00 mg/dL (0.700-1.30) Glomerular Filtration Rate Calc 101 mL/min (>90) BUN/Creatinine Ratio 12.0 (10.0-20.0) Serum Glucose 95 mg/dL (74-106) Calcium Level 8.9 mg/dL (8.7-10.4) Creatine Kinase 6427 U/L (46-171) Psychomotor activity: WNL Behavioral: Cooperative Eye contact: Appropriate Affect: Blunted Mood: Neutral Thought processes: Tangential, Disorganized Thought content: Hallucinations Suicidal ideations: Absent Homicidal ideations: Absent Orientation: Person, Place Memory intact: Recent Intellect: Average Abstractability: WNL Concentration: Limited Attention: Limited Judgement: Poor Insight: Poor Vitals Vital Signs Date Time Temp Pulse Resp B/P (MAP) Pulse Ox O2 Delivery O2 Flow Rate FiO2 05/18/24 18:00 22 148/82 (104) 05/18/24 17:00 107 95 05/18/24 07:45 97.0 97.0 05/17/24 19:30 Room Air* 0 21 Current medications Current Medications Medications Dose Ordered Sig/Candy Route Start Time Stop Time Status Last Admin Dose Admin Lorazepam 1 mg Q8HP PRN IV 05/16/24 23:45 05/18/24 13:58 1 MG Sodium Chloride 1,000 ml @ 120 mls/hr Q8H20M IV 05/16/24 23:45 05/18/24 18:04 120 MLS/HR Ondansetron HCl 4 mg Q4HP PRN IV 05/16/24 23:45 05/18/24 04:23 4 MG Docusate Sodium 100 mg BIDPRN PRN PO 05/16/24 23:45 Diphenhydramine HCl 25 mg Q4HPRN PRN IV 05/17/24 05:30 05/18/24 10:25 25 MG Morphine Sulfate 2 mg Q4HPRN PRN IV 05/17/24 05:30 05/18/24 04:23 2 MG Olanzapine 5 mg DAILY PO 05/18/24 10:00 05/18/24 09:44 5 MG Haloperidol Lactate 5 mg Q8HP PRN IV 05/18/24 14:45 Treatment plan discussed: With staff Medication adjusted: Yes Labs ordered: No Psychotherapy provided: No Type: 72 hour hold History of Present Illness Reason for Consult : psychiatric evaluation PER ED PHYSICIAN: History obtained from the [facility] and paramedics. 33-year-old male brought in by [facility] and the paramedics for altered level of consciousness/altered mental status. Patient was acting bizarrely in the street and was not cooperative. He admitted to use of methamphetamine. Per [employer] they are planning on placing him on a 5150 hold for possibly harm to others and to self and for gravely disabled and being confused. Patient states that he has been diagnosed in the past with mental illness including schizophrenia but he is not taking medications. Patient does suggest that he has hearing things and seeing things and make some very abnormal claims about his strength and power. He arrives in handcuffs. He did mentioned that he had some thoughts of hurting himself in the past. She is not cooperative and at this time refusing any intervention. He denies any acute pain. PSYCHIATRIST HPI: [place] [facility] [place] 33 yr old male was admitted for altered mental status and violent with h/o schizophrenia. He reported he has a wheezing for the past 4-6 days. 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 He continued to speak about different things but appeared very disorganized with his thoughts and could not answer directly. He said, "when you write stuff, I hear someone say Fuck You." He denied having SI/HI/AVH. Past Psychiatric History : He noted someone gave him weed that had meth in it and called it pineapple express which led to him staying up for seven days. Past Medical History: none Current Psychotropic Medications: Zyprexa Substance use: Smokes MJ quite often about five times. He reported occasional use of meth and fentanyl but denied frequent use. Denied alcohol and other substance use. Social History : Homeless Diagnosis: UNSPECIFIED PSYCHOTIC DISORDER Formulation: This 33 yr old male appears to suffer from psychosis and is still quite confused and altered. He may have substance induced psychosis due to the use of meth or other substances. He is currently gravely disabled and may benefit from psychiatric hospitalization. He may benefit from starting zyprexa 5 mg bid. Plan: 1. Recommend transfer to [facility] for further observation, treatment and stabilization. 2. Legal-initiate 5150 hold for grave disability. 3. Medication: start zyprexa 5 mg BID 4. Contact psychiatry if further follow up or reevaluation is desired. 5. Case discussed with NORMA Kline. Assessment/Diagnosis/Plan Reviewed: Labs, Medications, Previous Orders CHHAYA GALARZA MD May 18, 2024 20:53
[2024-05-18 21:51] VITALS: BP 145/102; PULSE 105; RESP 19; TEMP 97.3; O2SAT 95
[2024-05-18] MEDS: CARVEDILOL 3.125 MG TAB PO SCH (22:30)
[2024-05-19 01:00] VITALS: BP 129/85; PULSE 97; RESP 18; TEMP 98.2; O2SAT 100
[2024-05-19 05:00] VITALS: BP 141/81; PULSE 110; RESP 20; TEMP 98.4; O2SAT 100
[2024-05-19 07:37] LABS: Chloride 101 mmol/L (98-107); Potassium 4.2 mmol/L (3.5-5.1); Sodium 136 mmol/L (136-145)
[2024-05-19 07:38] LABS: Anion Gap 13 (5-15); Calcium 9.2 mg/dL (8.7-10.4); Carbon Dioxide 22 mmol/L (20-31)
[2024-05-19 07:43] LABS: BUN/Creatinine Ratio 9.3 (10.0-20.0); Blood Urea Nitrogen 10 mg/dL (9-23)
[2024-05-19 07:45] LABS: Glucose 72 mg/dL (74-106)
[2024-05-19 08:00] VITALS: PULSE 101; PULSE 97; RESP 21; O2SAT 98
[2024-05-19 09:00] VITALS: BP 128/95; PULSE 101; RESP 19; TEMP 98.1; O2SAT 98
--- NOTE | 2024-05-19 12:01 | DVH ---
PROCEDURE: Right hand radiographs. INDICATION: swelling TECHNIQUE: 3 views of the right hand were obtained. COMPARISON: None FINDINGS: There is no evidence of fracture or dislocation. Joint spaces are maintained. The soft tis sues are unremarkable. IMPRESSION: 1. No fracture or dislocation.
[2024-05-19] MEDS ORDERED: OLAN1TAB7 PO (12:24)
[2024-05-19] MEDS ORDERED: CARV-214 PO (12:24)
[2024-05-19 13:00] VITALS: BP 138/73; PULSE 101; RESP 18; TEMP 98.3; O2SAT 97
[2024-05-19 14:32] VITALS: BP 138/73; PULSE 101; RESP 18; TEMP 98.3; O2SAT 97
--- NOTE | 2024-05-19 14:36 | DVHDS2 ---
Discharge Summary Date of Admission May 16, 2024 at 23:31 Date of Discharge: May 19, 2024 Labs/Diagnostic Data: Laboratory Results Test 05/19/24 07:05 05/18/24 05:54 05/17/24 04:30 05/16/24 21:54 Sodium Level 136 mmol/L (136-145) Potassium Level 4.2 mmol/L (3.5-5.1) Chloride Level 101 mmol/L (98-107) Carbon Dioxide Level 22 mmol/L (20-31) Anion Gap 13 (5-15) Blood Urea Nitrogen 10 mg/dL (9-23) Creatinine 1.07 mg/dL (0.700-1.30) Glomerular Filtration Rate Calc 93 mL/min (>90) BUN/Creatinine Ratio 9.3 (10.0-20.0) Serum Glucose 72 mg/dL (74-106) Calcium Level 9.2 mg/dL (8.7-10.4) White Blood Count 4.2 10^3/uL (4.4-10.8) Red Blood Count 4.42 10^6/uL (4.5-5.90) Hemoglobin 13.8 g/dL (13.5-17.5) Hematocrit 40.6 % (41.0-53.0) Mean Corpuscular Volume 91.8 fL (80.0-100.0) Mean Corpuscular Hemoglobin 31.3 pg (28.0-32.0) Mean Corpuscular Hemoglobin Concent 34.1 g/dL (32.0-36.0) Red Cell Distribution Width 14.6 % (11.8-14.3) Platelet Count 160 10^3/uL (140-450) Mean Platelet Volume 8.2 fL (6.9-10.8) Neutrophils (%) (Auto) 69.2 % (37.0-80.0) Lymphocytes (%) (Auto) 21.2 % (10.0-50.0) Monocytes (%) (Auto) 8.9 % (0.0-12.0) Eosinophils (%) (Auto) 0.2 % (0.0-7.0) Basophils (%) (Auto) 0.5 % (0.0-2.0) Neutrophils # (Auto) 2.9 10 ^3/uL (1.6-8.6) Lymphocytes # (Auto) 0.9 10 ^3/uL (0.4-5.4) Monocytes # (Auto) 0.4 10 ^3/uL (0-1.3) Eosinophils # (Auto) 0 10 ^3/uL (0-0.8) Basophils # (Auto) 0 10 ^3/uL (0-0.2) Nucleated Red Blood Cells 0.2 % Creatine Kinase 6427 U/L (46-171) Total Bilirubin 0.9 mg/dL (0.2-1.0) Aspartate Amino Transferase (AST) 221 U/L (13-40) Alanine Aminotransferase (ALT) 111 U/L (7-40) Alkaline Phosphatase 61 U/L (46-116) Total Protein 6.4 g/dL (5.7-8.2) Albumin 3.6 g/dL (3.2-4.8) Urine Color Light-yellow (Yellow) Urine Clarity Clear (Clear) Urine pH 6.5 (5.0-9.0) Urine Specific [place] 1.023 (1.001-1.035) Urine Protein 1+ (Negative) Urine Ketones 2+ (Negative) Urine Blood Negative /uL (Negative) Urine Nitrite Negative (Negative) Urine Bilirubin Negative (Negative) Urine Urobilinogen Normal mg/dL (Negative) Urine Leukocyte Esterase Negative /uL (Negative) Urine RBC 2 /hpf (0 - 3) Urine WBC 3 /hpf (0 - 3) Urine Squamous Epithelial Cells None seen /hpf (<5) Urine Bacteria Many /hpf (None Seen) Urine Mucus Few (None Seen) Urine Sperm Present /hpf (None Seen) Urine Glucose Normal mg/dL (Normal) Urine Opiates Screen Neg (NEGATIVE) Urine Fentanyl Screen Neg (NEGATIVE) Urine Barbiturates Screen Neg (NEGATIVE) Urine Phencyclidine Screen Neg (NEGATIVE) Urine Amphetamines Screen Pos (NEGATIVE) Urine Benzodiazepines Screen Neg (NEGATIVE) Urine Cocaine Screen Pos (NEGATIVE) Urine Cannabinoids Screen Pos (NEGATIVE) Test 05/16/24 18:05 05/16/24 14:40 Troponin I High Sensitivity 12 ng/L (</=54) Plasma/Serum Blood Alcohol < 3.0 mg/dL (<10) Lactic Acid Level 1.2 mmol/L (0.4-2.0) Magnesium Level 2.7 mg/dL (1.6-2.6) B-Type Natriuretic Peptide 6.28 pg/mL (0-100) Other Laboratory Tests 05/19/24 07:05 05/18/24 05:54 Brief Hx & Hospital Course: 33 yo M found agitated and brought in under police custody, found to have rhabdomyolisis, was given IVF and sedation for agitation, psych teleconsultation done and patient was placed on 5150. Patient is now medically cleared and was placed back under police custody depsummer Garay, and will be taken to [facility] for inpatient psych eval. Condition at Discharge: Fair Final Diagnosis/Problems List rhabdomyolisis CHETNA resolved afib rate controlled disorganized thoughts Discharge Disposition: Correction Discharge Instruct/Medications Diet: Regular, See Comment Activity: No Restrictions, As Tolerated Follow Up/Referral: Patient was placed on 5150 hold, will need acute inpatient psychiatric facility, patient is in custody Medications: zyprexa and coreg 39 Discharge Statement: "Patient was advised to return to the ER or call 911 if any headaches, dizziness, shortness of breath, chest pain, abdominal pain, bleeding, fevers, or worsening of medical condition. Patient was counseled about treatment plan, medications, possible side effects, patientverbalized understanding. All questions were answered to the best of my ability. This discharge took greater then 30 minutes in planning, reviewing documentation, counseling the patient, and discussing with other team members." ASSESSMENT ASSESSMENT Assessment CHETNA improving rhabdomyolisis, however on our eval no myoglobin in urine, with CHETNA and elevated CK amphetamine use afib rvr now rate controlled cannabis use cocaine use transaminitis psychosis? asthma not in exacerbation Date of Service: May 19, 2024 Billing Provider: VELVET BIRD MD Common Visit Codes: 79181-FKD/OBS DISCH DAY >30min VELVET BIRD MD May 19, 2024 14:36
--- NOTE | 2024-05-20 09:47 | ECG ---
[facility] Test Date: 2024-05-16 Test Time: 11:52:50 Pat Name: WINNIE LONG Department: ED Room: 0207T A Gender: M Land Cle[employer]: VANESSA : 1990 Requested By: ALEX ROUSE Order Number: [id number] Reading MD: Measurements Intervals Gray Rate: 152 P: 74 CA: 68 QRS: 54 QRSD: 88 T: 27 QT: 299 QTc: 476 Interpretive Statements Sinus tachycardia Borderline prolonged QT interval Baseline wander in lead(s) I,III,aVR,aVL,aVF,V1,V2,V3,V4,V5,V6 Please click the below link to view image of tracing.
== END 2024-05-19 15:30 | DRG 812 ==
LOC: EDBD 11:33 → ER 11:33 → TELE 23:31 → TELE-CENTR 05-18 19:55
PROVIDERS: ADMIT Nurse Practitioner Family; ATTEND Student in an Organized Health Care Education/Training Program
DX: T43.651A Poisoning by methamphetamines accidental (unintentional), initial encounter (principal); G92.8 Other toxic encephalopathy; N17.9 Acute kidney failure, unspecified; I48.20 Chronic atrial fibrillation, unspecified; E86.0 Dehydration; F17.210 Nicotine dependence, cigarettes, uncomplicated; F14.90 Cocaine use, unspecified, uncomplicated; F20.9 Schizophrenia, unspecified; I48.91 Unspecified atrial fibrillation; J45.909 Unspecified asthma, uncomplicated; Z88.1 Allergy status to other antibiotic agents; Z59.00 Homelessness unspecified
CPT/HCPCS: 36415; 70450; 71045; 73130; 80048; 80053; 80307; 80320; 81001; 82550; 83605; 83735; 83880; 84484; 85025; 93005; 99291; G0378; J2405; J2543